=== PATIENT | male | born 1995 | race Asian ===

== ENCOUNTER 2022-02-10 16:58 | Emergency (ER) | payer OTHER, SELFPAY ==
[2022-02-10 17:19] VITALS: BP 125/82; PULSE 74; RESP 16; TEMP 36.3; O2SAT 97; BMI 31.8
--- NOTE | 2022-02-10 19:06 | ED_ITS ---
HPI - Head Injury General Chief complaint: Head Injury Stated complaint: Fell, Hit head Time Seen by Provider: 02/10/22 18:42 Source: patient Mode of arrival: Ambulatory History of Present Illness HPI Narrative: 27-year-old male nonsmoker with noncontributory medical history presents for evaluation of a head injury suffered on February 07. He had been walking and slipped on the ice and fell backwards striking the back of his head on the concrete. He was wearing a lewis and a beanie, he denies any loss of consciousness, takes no blood thinners. He denies nausea or vomiting and has had no other neurologic symptoms such as blurred vision, trouble with speech, numbness, tingling or weakness of extremities. He states that he was doing largely rather well for the 1st day or 2 but over the course of today has developed increasing headache with nausea and is concerned that he may have suffered a more significant injury. He denies any neck or back pain. Related Data Previous Rx's Medication Instructions Recorded ondansetron 4 mg disintegrating 4 mg PO TID-QID PRN nausea and 02/10/22 tablet vomiting #10 tabs Review of Systems Review of Systems Narrative: GENERAL: Denies chills, fatigue, malaise, fever, sweats. HEENT: Denies sinus pain, ear pain, sore throat, difficulty swallowing, dizziness. RESPIRATORY: Denies dyspnea, cough, wheezing, hemoptysis, sputum. CARDIOVASCULAR: Denies chest pain, palpitations, orthopnea, edema, GASTROINTESTINAL: Denies nausea, vomiting, abdominal pain, diarrhea, constipation, melena. : Denies dysuria, frequency, incontinence, hematuria, urinary retention. MUSCULOSKELETAL: See HPI SKIN: Denies rash, skin lesions, or other NEUROLOGIC: See HPI PSYCHIATRIC: No concerning psychosocial issues. 12 point review of systems is negative except for those stated above Patient History Social History Smoking Status: Never smoker Smoking Status: Never smoker Substance Use Type: marijuana Exam Narrative Exam Narrative: GENERAL: [27] year old patient appears stated age. Well-developed patient, in mild distress. GCS 15 HEAD: Atraumatic. Normocephalic. No contusion, abrasion or laceration, no evidence of depressed skull fracture EYES: Pupils equal round and reactive. No hyphema Extraocular motions intact. No scleral icterus. No injection or drainage. ENT: Nose without bleeding, purulent drainage. No nasal septal hematoma Throat without erythema, tonsillar hypertrophy or exudate. Airway patent. NECK: Trachea midline. Non tender CARDIOVASCULAR: Regular rate and rhythm without murmurs, gallops, or rubs. RESPIRATORY: Clear to auscultation. Breath sounds equal bilaterally. No wheezes, rales, or rhonchi. GASTROINTESTINAL: Abdomen soft, non-tender, nondistended. EXTREMITIES: No edema or joint tenderness. BACK: Nontender without deformity or crepitance. No flank tenderness. NEURO: AOx3. SKIN: No rash or erythema of visible areas Initial Vital Signs Initial Vital Signs: Vital Signs Temperature 97.4 F L 02/10/22 17:19 Pulse Rate 74 02/10/22 17:19 Respiratory Rate 16 02/10/22 17:19 Blood Pressure 125/82 02/10/22 17:19 Pulse Oximetry 97 02/10/22 17:19 Oxygen Delivery Method 02/10/22 17:[address] Head Rule Age <16 years old: No Patient on blood thinners: No Seizure after injury: No Exclusion: Patient NOT Excluded, Proceed to next steps GCS < 15 at 2 hr post trauma: No Suspected open or depressed skull fracture: No Any sign of basilar skull fracture (hemotympanum, raccoon eyes, Sullivan's sign, CSF apryl-/rhinorrhea): No Two or more episodes of vomiting: No Age greater or equal to 65 years: No Retrograde amnesia to the event greater or equal to 30 min: No Dangerous Mechanism (pedestrian vs. mv, occupant ejected from mv, fall from >3 ft or > 5 stairs): No Recommendation: CT unnecessary Course Course Course Narrative: we did discuss the reassuring history and physical exam including [place] Head CT rules, however he is clearly quite concerned. After discussion of risks/benefits including exposure to radiation, cost, etc. we agree to perform a head CT given the fact that he has had increasing symptoms over the past 24 hours. Orders Ordered: ED Orders 02/10/22 19:22 CT head/brain wo con Stat Vital Signs Vital signs: Vital Signs - 8 hr 02/10/22 17:19 Temperature 97.4 F L Pulse Rate 74 Respiratory Rate 16 Blood Pressure 125/82 Pulse Oximetry 97 Oxygen Delivery Method Room Air Discharge Plan Departure Patient Disposition: Home Clinical Impression: Concussion without loss of consciousness Instructions: Concussion Activity Restrictions/Additional Instructions: *You have been diagnosed with [closed head injury, with evidence of mild concussion. As we discussed your history and physical exam are reassuring and the CT scan demonstrates no significant abnormalities] *What to do: *Please continue to take your regular medications as directed. * You have a slight concussion and will likely have a mild headache and some nausea for a few days. Avoiding highly stimulating activities and even TV or computers may be helpful in minimizing your symptoms. Avoid activities that will put you at risk for another head injury for at least a week. You can take tylenol or motrin for headache or the prescription provided for nausea/vomiting. Return for worsening or persistent symptoms *If you do not have a primary care provider please contact the [facility] Resource line at [phone]. They will ask some questions about your medical history and help get you set up with a doctor in the community. *Return to Emergency Department if you should have any new, worsening or concerning symptoms, such as [fever greater than 101 F, shaking chills, worsening pain, persistent vomiting or other bothersome symptoms] Prescriptions: New ondansetron 4 mg tablet,disintegrating 4 mg PO TID-QID PRN (Reason: nausea and vomiting) Qty: 10 0RF Visit Report Forms: Patient Portal/API
--- NOTE | 2022-02-10 19:22 | DI.CT.S_ITS ---
PROCEDURE: CT HEAD/BRAIN WO CON INDICATIONS: fall, head injury, worsening symptoms TECHNIQUE: Noncontrast 4.5 mm thick angled axial sections acquired from the foramen magnum to the vertex, with coronal and sagittal reformats. For radiation dose reduction, the following was used: automated exposure control, adjustment of mA and/or kV according to patient size. COMPARISON: None. FINDINGS: Image quality: Excellent. CSF spaces: Basal cisterns are patent. No extra-axial fluid collections. Ventricles are normal in size and shape. Brain: No midline shift. No intracranial masses or hemorrhage. Parks-white matter interface is normal. Skull and face: Calvarium and visualized facial bones are intact, without suspicious lesions. Sinuses: Visualized sinuses and mastoids are clear. IMPRESSION: No acute intracranial abnormality. Dictated by: Russell Abdul M.D. on 02/10/2022 at 19:49 Approved by: Russell Abdul M.D. on 02/10/2022 at 19:50
[2022-02-10 20:09] VITALS: BP 112/62; PULSE 72; RESP 18; O2SAT 99
== END 2022-02-10 20:10 | disposition home or self-care (01) ==
PROVIDERS: Emergency Provider Emergency Medicine
DX: S06.0X0A Concussion without loss of consciousness, initial encounter (principal); W00.0XXA Fall on same level due to ice and snow, initial encounter
CPT/HCPCS: 70450; 99283